=== PATIENT | male | born 1985 | race Caucasian/White ===

== ENCOUNTER 2019-07-25 06:00 | Outpatient (RCR) | payer OTHER, SELFPAY | END 2019-08-24 00:01 | LOC: SPT 06:00 | PROVIDERS: Family Provider Family Medicine; Visit Provider Family Medicine | DX: G46.3 Brain stem stroke syndrome (principal); R53.1 Weakness; R26.89 Other abnormalities of gait and mobility | CPT/HCPCS: 97110 ×4; 97112 ×3 ==

== ENCOUNTER 2019-08-25 06:00 | Outpatient (RCR) | payer OTHER, SELFPAY | END 2019-09-24 23:59 | disposition home or self-care (01) | LOC: SPT 06:00 | PROVIDERS: Family Provider Family Medicine; PCP Family Medicine; Referring Provider Family Medicine; Visit Provider Family Medicine | DX: R53.1 Weakness (principal); G46.3 Brain stem stroke syndrome; R26.89 Other abnormalities of gait and mobility | CPT/HCPCS: 97110 ==

== ENCOUNTER 2019-10-06 06:00 | Outpatient (RCR) | payer OTHER, SELFPAY | END 2019-10-23 23:59 | disposition home or self-care (01) | LOC: SPT 06:00 | PROVIDERS: Family Provider Family Medicine; PCP Family Medicine; Referring Provider Family Medicine; Visit Provider Family Medicine | DX: I69.359 Hemiplegia and hemiparesis following cerebral infarction affecting unspecified side (principal); I69.398 Other sequelae of cerebral infarction; R26.9 Unspecified abnormalities of gait and mobility | CPT/HCPCS: 97113; 97161 ==

== ENCOUNTER 2019-10-24 06:00 | Outpatient (RCR) | payer OTHER, SELFPAY | END 2019-11-23 23:59 | disposition home or self-care (01) | LOC: SPT 06:00 | PROVIDERS: Family Provider Family Medicine; PCP Family Medicine; Referring Provider Family Medicine; Visit Provider Family Medicine | DX: Q28.3 Other malformations of cerebral vessels (principal) | CPT/HCPCS: 97113 ==

== ENCOUNTER 2019-12-24 06:00 | Outpatient (RCR) | payer OTHER, SELFPAY | END 2020-01-23 23:59 | disposition home or self-care (01) | LOC: SPT 06:00 | PROVIDERS: Family Provider Family Medicine; PCP Family Medicine; Referring Provider Family Medicine; Visit Provider Family Medicine | DX: Z87.820 Personal history of traumatic brain injury (principal); Z86.73 Personal history of transient ischemic attack (TIA), and cerebral infarction without residual deficits | CPT/HCPCS: 97113 ==